=== PATIENT | female | born 1945 | race Caucasian/White ===

== ENCOUNTER 2018-04-04 06:33 | Outpatient (CLI) | payer MEDICARE, BC ==
[2014-08-29 11:07] VITALS: BMI 25.5
[~2018-04-04 06:33] MED LIST: AMBIEN CR12.5 MG/BO PO; ANTIVERT25 MG PO; ASPIRIN325 MG PO; CARAFATE1 G/10 ML PO; DEXILANT60 MG PO; HYDROCHLOROTHIA25 MG PO; HYDROCODONE-APA1 TAB PO; LINZESS145 MCG PO; LOVENOX30 MG/0.3 SQ; PROPRANOLOL HCL20 MG PO; PROTONIX40 MG PO; REQUIP1 MG PO; RESTORIL15 MG PO; SKELAXIN800 MG PO; SYNTHROID112 MCG PO; TALWIN NX1 TAB PO; ULTRAM50 MG PO; VALTREX1000 MG PO; ZOFRAN4 MG PO
== END 2018-04-04 23:59 | disposition home or self-care (01) ==
LOC: D.MAMMO 06:33
DX: Z12.31 Encounter for screening mammogram for malignant neoplasm of breast (principal)